=== PATIENT | female | born 1965 | race Caucasian/White ===

== ENCOUNTER 2018-02-24 18:40 | Inpatient (IN) | payer BC, OTHER ==
[~2018-02-24] VITALS: Ht 157.5 cm; Wt 53.5 kg
[2018-02-24] MEDS ORDERED: MAG HYDROX/AL HYDROX/SIMETH 30 ML LIQUID UDC PO PRN (22:00)
[2018-02-24] MEDS ORDERED: BUPRENORPHINE HCL 2 MG TAB.SUBL SL PRN (22:00)
[2018-02-24] MEDS ORDERED: ONDANSETRON 4 MG/2 ML VIAL IM PRN (22:00)
[2018-02-24] MEDS ORDERED: MAGNESIUM HYDROXIDE 30 ML LIQUID UDC PO PRN (22:00)
[2018-02-24] MEDS ORDERED: LORAZEPAM 1 MG TABLET PO PRN (22:00)
[2018-02-24] MEDS ORDERED: MIRALAX 17 GM POWD.PACK PO PRN (22:00)
[2018-02-24] MEDS ORDERED: LOPERAMIDE HCL 2 MG CAPSULE PO PRN (22:00)
[2018-02-24] MEDS ORDERED: CLONIDINE HCL 0.1 MG TABLET PO PRN (22:00)
[2018-02-24] MEDS ORDERED: diphenhydrAMINE 50 MG CAPSULE PO PRN (22:00)
[2018-02-24] MEDS ORDERED: DICYCLOMINE HCL 20 MG TABLET PO PRN (22:00)
[2018-02-24] MEDS ORDERED: ACETAMINOPHEN 325 MG TABLET PO PRN (22:00)
--- NOTE | 2018-02-24 22:45 | NUR ---
Pre-admission assessment Patient is a 53-year old, female, seen at intake, AAOx4, no SOB and with anxiety and gross tremors noted at this time. Patient also observed to have flushed skin and with sweating on the forehead. Discussed with patient admission policies of the unit. Patient is coherent and able to respond to questions appropriately. Patient reported that she is based from [place] but is originally from [place]. Pt is ambulatory with steady gait. Pt reports that she drinks Wine every other day and uses Heroin daily and if she cannot obtain Heroin, she would use Lorcet. Vital signs taken and as follows: JG=155/67, P=81, O2 sat on RA=97%, RR=20, T=98.1. Pt verbalized instructions and teachings regarding disposal of narcotic and other controlled home meds, unit protocols such as taking of vital signs Q4H and handling and disposal of contraband.
[2018-02-24] MEDS ORDERED: VALA500T PO (23:22)
[2018-02-24] MEDS ORDERED: DIPH25TA2 PO (23:22)
[2018-02-24] MEDS ORDERED: GABA300C PO (23:22)
[2018-02-24] MEDS ORDERED: QUET25TA PO (23:22)
[2018-02-24 23:30] VITALS: BP 126/68
[2018-02-24] MEDS ORDERED: LORAZEPAM 1 MG TABLET PO SCH (23:30)
--- NOTE | 2018-02-24 23:30 | NUR ---
RN note one-time Seroquel Pt verbalized that she was taking Seroquel 25 mg PO HS for sleep at home. Dr. Draper ordered one-time of Seroquel 25 mg PO.
--- NOTE | 2018-02-24 23:40 | NUR ---
Admission Note Patient is a 53-year-old, female, arrived to the floor at 2315 to be admitted for medically supervised withdrawal from Opiates (Heroin and Lorcet) and Alcohol (Wine). The patient appears mildly intoxicated and patient verbalized that she is starting to experience withdrawal symptoms, as follows: flushed skin, increasing anxiety, restless legs, tremors and sweating. Patient appears melancholic and with depressed mood. Pt is AAOx4, and verbalized "I am abusing drugs and I want to stop before I lose everything." The patient states that withdrawal symptoms include emotional volatility, depression, anxiety, restless legs, generalized pain, nausea, insomnia, flushed skin and sweating. Patient denies a history of withdrawal-induced seizures. Patient verbalized that she was a Registered Nurse working in the OR and has a fall in 2016 at working resulting to being treated with Opioids due to pain from cervical bulging disc. Patient stated that when the doctor stopped prescribing opioids, she resorted to using Heroin and Lorcet when Heroin is not available. Patient states current substance use as follows: 1. Heroin- Patient stated that she first used last year and for the past year, she has been injecting (IV) 1 gm daily. Last use was on 02/24/2018 at 1400, 1 gm IV. 2. Alcohol-Patient stated that she first had alcohol at age 14. For the past 5 years, patient verbalized drinking "2 glasses of wine", every other day. Last drink was on 02/22/2018 2100, 2 glasses of red wine. 3. Lorcet--Patient stated that she first used at age 43. For the past year, patient has been using an unspecified amount, intermittent and non-daily. Per patient, she only uses when Heroin is not available. Last use was on 02/22/2018, a total of "6 pills of 10-325 mg PO" She stated that she is seeking treatment today because "I cannot sustain this. I am almost 58 and if I don't stop, it will be the end of me." Patient verbalized: "My boyfriend and kids are concerned about my drug use and like them, I fear for my life." Her longest sobriety was 10 years, between 2001 to 2011. Patient admitted that "I have a PhD in Clinical Psychology but I'm a mess. Sometimes, I cannot even look at myself in the mirror because I hate what I see. My son has become an addict because of me. I'm scared for my other kids. I need help before it's too late." Patient also stated: ""I feel like my body is about to give up. I still have some years left in me so might as well do this now." Patient verbalized that she is interested in going to a treatment center after her stay at [facility]. Patient's main support system is her boyfriend. Vital signs are taken and as follows: BP: 126/84, HR: 82, RR: 18, SpO2: 97%, Temp: 98.2 and with no c/o pain. Pulse is palpable and regular. Respirations are even and unlabored. Lung sounds clear. Bowel sounds active x4 quadrants. Last bowel movement was in the morning of 02/10/2018. Per patient, her bowel movement is mostly every other day. Skin is intact. Pt follows a regular diet at home. NKA. Full Code. Height is 5'2", 118 lbs. She smokes approximately about a pack of cigarettes daily. Per patient, primary care physician is Dr. Alves in [place]. Pt denies having a Psychiatrist. Pt states that her medical history are as follows: Anxiety, Depression, Hepatitis C, Appendectomy (1993), Tubal Ligation (1994) and Cervical Bulging Disc resulting from a fall in 2016. Educated patient about plan of care including detox, group therapy, individual therapy, and discharge planning. Encouraged patient to be open and honest and verbalized support for patient in her recovery. Upon admission to the floor, COWS=9. Will continue to monitor.
[2018-02-24] MEDS ORDERED: QUETIAPINE FUMARATE 25 MG TABLET PO ONE (23:45)
[2018-02-25] VITALS: BP 117/71
--- NOTE | 2018-02-25 00:35 | NUR ---
RN note reassess Pt lying on bed, watching TV, AAOx4 and verbalized: "I feel sleepy now. I may knock out soon."
[2018-02-25 01:13] LABS: *URINE HCG, QUAL NEGATIVE (NEGATIVE)
[2018-02-25 02:54] LABS: *AMPHETAMINE, URINE NEGATIVE (NEGATIVE); *BARBITURATE, URINE NEGATIVE (NEGATIVE); *CANNABINOID, URINE NEGATIVE (NEGATIVE); *COCCAINE, URINE NEGATIVE (NEGATIVE); *OPIATE, URINE POSITIVE (NEGATIVE); *PHENCYCLIDINE SCREEN,URINE NEGATIVE (NEGATIVE)
[2018-02-25 04:00] VITALS: BP 114/73
--- NOTE | 2018-02-25 07:21 | NUR ---
End of Shift Patient asleep on bed but arousable, AAOx4 and getting increasingly anxious. Pt continues to have flushed skin, sweating and with tremors noted. Pt appears depressed and melancholic. Fall, universal, safety and seizure prec in place. Call light within reach. Latest COWS=8, slept for 2 hours. Endorsed to AM shift nurse for continuity of care.
--- NOTE | 2018-02-25 07:36 | NUR ---
Start of shift Patient 53 y/o female admitted for medically supervised withdrawal of Heroin, Lorcet and ETOH. Patient alert & oriented to name, place & situation. Presents with depressed mood, flat affect, and anxious. Denies c/o N/V/D. Pt on PRN Subutex. At 0400 last COWS 8. No PRN medications received during PM shift. Patient slept 2 hours. Patient remained compliant with medication regimen. Encourage pt to attend group therapy to learn/develop coping skills to prevent relapse. Pt allergic to iodine, FULL CODE. Bed in lowest/locked position, side rails up X2, call light within reach. Will continue to monitor for withdrawal symptoms.
[2018-02-25 08:02] VITALS: BP 123/81
[2018-02-25 08:07] LABS: BASOPHILS # (AUTO) 0.1 K/uL (0.0-8.0); BASOPHILS % (AUTO) 1.3 % (0.0-2.0); EOSINOPHILS # (AUTO) 0.2 K/uL (0.0-0.7); EOSINOPHILS % (AUTO) 2.9 % (0.0-7.0); HEMATOCRIT 42.6 % (31.2-41.9); HEMOGLOBIN 14.7 g/dL (10.9-14.3); LYMPHOCYTES % (AUTO) 36.4 % (20.5-51.5); MEAN CORPUSCULAR HEMOGLOBIN 32.3 uug (24.7-32.8); MEAN CORPUSCULAR HGB CONC 35 g/dL (32.3-35.6); MEAN CORPUSCULAR VOLUME 93.4 fL (75.5-95.3); MONOCYTES # (AUTO) 0.6 K/uL (2.0-10.0); MONOCYTES % (AUTO) 10.2 % (0.0-11.0); NEUTROPHILS # (AUTO) 2.7 K/uL (1.8-8.9); NEUTROPHILS % (AUTO) 49.2 % (38.5-71.5); PLATELET COUNT (AUTO) 160 K/uL (179-408); RED BLOOD CELL COUNT(AUTO) 4.56 MIL/uL (3.63-4.92); WHITE BLOOD COUNT (AUTO) 5.4 K/uL (3.8-11.8)
[2018-02-25] MEDS: IBUPROFEN 600 MG TABLET PO PRN (08:14)
[2018-02-25] MEDS: ONDANSETRON ODT 4 MG TAB.RAPDIS SL PRN (08:14)
[2018-02-25] MEDS: METHOCARBAMOL 750 MG TABLET PO PRN ×2 (08:14→21:05)
--- NOTE | 2018-02-25 08:20 | NUR ---
PRN MEDICATIONS IBUPROFEN 600 MG PO FOR NECK PAIN #7/10 ROBAXIN 750 MG PO FOR GENERALIZED BODY ACHES ATIVAN 2 MG PO FOR ANXIETY AND WITHDRAWAL SYMPTOMS ZOFRAN 4 MG SL FOR NAUSEA NO EMESIS.
--- NOTE | 2018-02-25 08:22 | NUR ---
TB TEST ADMINISTERED TO LEFT FOREARM. WILL BE READ IN 48-72 HOURS
[2018-02-25 08:24] LABS: ETHANOL < 3 MG/DL (0-0)
[2018-02-25 08:25] LABS: ALANINE AMINOTRANSFERASE 154 U/L (14-59); ALKALINE PHOSPHATASE 183 U/L (50-136); ASPARTATE AMINOTRANSFERASE 143 U/L (15-37); BILIRUBIN,TOTAL 0.4 mg/dL (0.2-1.0); CHLORIDE 102 mmol/L (98-107); CREATININE 0.7 mg/dL (0.6-1.3); GLUCOSE 92 mg/dL (74-106); MAGNESIUM 1.9 mg/dL (1.8-2.4); POTASSIUM 3.8 mmol/L (3.5-5.1); TOTAL PROTEIN, SERUM 7.6 g/dL (6.4-8.2); UREA NITROGEN, BLOOD 15 mg/dL (7-18)
[2018-02-25 08:29] LABS: CARBON DIOXIDE 28 mmol/L (21-32)
[2018-02-25] MEDS ORDERED: TUBERCULIN,PURIF.PROT.DERIV. 5 TU/0.1 ML TEST ID ONE (09:00)
--- NOTE | 2018-02-25 09:20 | NUR ---
REASSESS PRN MEDICATIONS IBUPROFEN- PT STATES NECK PAIN NOW #2-3 /10 AND SHE FEELS BETTER ROBAXIN- PT STATES BODY ACHES IMPROVED ZOFRAN- PT STATES NAUSEA GONE AND SHE WAS ABLE TO EAT BREAKFAST ATIVAN- PT REPORTS ANXIETY AND W/D SYMPTOMS IMPROVED
[2018-02-25 12:00] VITALS: BP 107/71
[2018-02-25] MEDS ORDERED: LORAZEPAM 2 MG/1 ML VIAL IM PRN (12:15)
[2018-02-25] MEDS ORDERED: GABAPENTIN 300 MG CAPSULE PO SCH (15:00)
[2018-02-25 16:00] VITALS: BP 124/78
[2018-02-25] MEDS: LORAZEPAM 1 MG TABLET PO PRN (16:08)
--- NOTE | 2018-02-25 16:09 | NUR ---
PRN ATIVAN 1 MG PO FOR CIWA 9
--- NOTE | 2018-02-25 17:00 | NUR ---
[facility] PT STATES SHE FEELS LESS ANXIOUS AND MORE RELAXED.
--- NOTE | 2018-02-25 18:37 | NUR ---
End of shift Patient 53 y/o female admitted for medically supervised withdrawal of Heroin, Lorcet and ETOH. Patient alert & oriented to name, place & situation. Presents with depressed mood, flat affect, and anxious. Denies c/o N/V/D. Pt on PRN Ativan and Subutex today, taper to start tomorrow. Last COWS 9, CIWA 6. PRN medications given, Zofran, Ativan, Robaxin, and Motrin. Patient remained compliant with medication regimen. Encourage pt to attend group therapy to learn/develop coping skills to prevent relapse. Did not attend group therapy. Pt allergic to iodine, FULL CODE. Adequate PO fluids 2047 ml, voids X 3, no BM. Fall and seizure precautions observed. Bed in lowest/locked position, side rails up X2, call light within reach. Will continue to monitor for withdrawal symptoms. Endorsed to PM shift.
[2018-02-25 20:00] VITALS: BP 140/79
--- NOTE | 2018-02-25 20:00 | NUR ---
START OF SHIFT NOTE RECEIVED REPORT FROM DAY SHIFT NURSE. PATIENT IS A 53 YEAR OLD FEMALE ADMITTED FOR ETOH/HEROIN WITHDRAWAL. PATIENT IS ON PRN SUBUTEX AND ATIVAN, TAPER WILL START TOMORROW. PATIENT WAS GIVEN PRN ATIVAN X 2, ROBAXIN AND ZOFRAN . LAST COWS 9 AND CIWA 6. RECEIVED PATIENT IN THE ROOM. PATIENT IN THE ROOM, PRESENTS WITH FLAT AFFECT, SAD, AVOIDANT EYE CONTACT, IRRITABLE, ANXIETY , SWEATING , FATIGUE AND 7/10 LOWER BACK. SAFETY MEASURES IN PLACE. CALL LIGHT IN REACH. WILL CONTINUE TO MONITOR
[2018-02-25] MEDS: GABAPENTIN 300 MG CAPSULE PO SCH (21:05)
--- NOTE | 2018-02-25 21:05 | NUR ---
PRN ROBAXIN ADMINISTRATION PATIENT C/O BACK PAIN 04/25. WILL MONITOR FOR EFFECTIVENESS
--- NOTE | 2018-02-25 22:05 | NUR ---
GIANLUCA OSEGUERA RE-ASSESSMENT PATIENT IN BED ASLEEP . RESPIRATION EVEN AND UNLABORED. NO FACIAL GRIMACING. WILL CONTINUE TO MONITOR
--- NOTE | 2018-02-26 | NUR ---
COWS AND CIWA DEFERRED PATIENT IN BED SLEEPING. RESPIRATION EVEN AND UNLABORED. VS REFUSED. WILL CONTINUE TO MONITOR
--- NOTE | 2018-02-26 04:00 | NUR ---
COWS AND CIWA DEFERRED PATIENT IN BED SLEEPING. RESPIRATION EVEN AND UNLABORED. VS REFUSED. WILL CONTINUE TO MONITOR
--- NOTE | 2018-02-26 07:07 | NUR ---
END OF SHIFT NOTE PATIENT SLEPT 10 HOURS. FLUID INTAKE 1,180 ML. VOIDED X 2. NO BM MONITORED PATIENT THROUGHOUT SHIFT. PATIENT PRESENTED WITH FLAT AFFECT, SAD, EYE AVOIDANT, IRRITABLE, ANXIETY , SWEATING , FATIGUE AND 7/10 LOWER BACK BEGINNING OF SHIFT . PRN ROBAXIN AT 2105 GIVEN. PATIENT IN THE ROOM MOST OF THE SHIFT. SAFETY MEASURES IN PLACE. CALL LIGHT IN REACH. WILL CONTINUE TO MONITOR . LAST COWS 7 AND CIWA 7.
--- NOTE | 2018-02-26 07:30 | NUR ---
Start of shift Patient 53 y/o female admitted for medically supervised withdrawal of Heroin, Lorcet and ETOH. Patient alert & oriented to name, place & situation. Presents with tremors, agitation, restlessness, depressed mood, flat affect, and anxious. Denies c/o N/V/D. Pt starts on Subutex taper today. Last COWS 7, CIWA . PRN medications given last night Robaxin. Patient remained compliant with medication regimen. Encourage pt to attend group therapy to learn/develop coping skills to prevent relapse. Pt allergic to iodine, FULL CODE. Fall and seizure precautions observed. Bed in lowest/locked position, side rails up X2, call light within reach. Will continue to monitor for withdrawal symptoms.
[2018-02-26 07:56] LABS: BASOPHILS # (AUTO) 0.1 K/uL (0.0-8.0); BASOPHILS % (AUTO) 1.3 % (0.0-2.0); EOSINOPHILS # (AUTO) 0.1 K/uL (0.0-0.7); EOSINOPHILS % (AUTO) 0.9 % (0.0-7.0); HEMATOCRIT 41.3 % (31.2-41.9); HEMOGLOBIN 14.3 g/dL (10.9-14.3); LYMPHOCYTES # (AUTO) 1.5 K/uL (20.0-40.0); LYMPHOCYTES % (AUTO) 19.9 % (20.5-51.5); MEAN CORPUSCULAR HEMOGLOBIN 32.5 uug (24.7-32.8); MEAN CORPUSCULAR HGB CONC 35 g/dL (32.3-35.6); MEAN CORPUSCULAR VOLUME 94.1 fL (75.5-95.3); MONOCYTES # (AUTO) 0.4 K/uL (2.0-10.0); MONOCYTES % (AUTO) 5.8 % (0.0-11.0); NEUTROPHILS # (AUTO) 5.4 K/uL (1.8-8.9); NEUTROPHILS % (AUTO) 72.1 % (38.5-71.5); PLATELET COUNT (AUTO) 169 K/uL (179-408); RED BLOOD CELL COUNT(AUTO) 4.39 MIL/uL (3.63-4.92); WHITE BLOOD COUNT (AUTO) 7.4 K/uL (3.8-11.8)
[2018-02-26 08:00] VITALS: BP 129/86
[2018-02-26] MEDS: FOLIC ACID 1 MG TABLET PO SCH (08:21)
[2018-02-26] MEDS: LORAZEPAM 1 MG TABLET PO PRN ×4 (08:21→20:49)
[2018-02-26] MEDS: MULTIVITAMINS,THERAPEUTIC TABLET PO SCH (08:21)
[2018-02-26] MEDS: GABAPENTIN 300 MG CAPSULE PO SCH ×2 (08:21→20:49)
[2018-02-26] MEDS: THIAMINE HCL 100 MG TABLET PO SCH (08:21)
[2018-02-26] MEDS: IBUPROFEN 600 MG TABLET PO PRN ×2 (08:21→16:12)
[2018-02-26] MEDS: METHOCARBAMOL 750 MG TABLET PO PRN ×2 (08:21→16:12)
[2018-02-26] MEDS: BUPRENORPHINE HCL 2 MG TAB.SUBL SL SCH ×3 (08:22→20:49)
--- NOTE | 2018-02-26 08:23 | NUR ---
PRN MEDICATIONS ATIVAN 1 MG PO FOR CIWA 11 AND PT C/O ANXIETY IBUPROFEN 600 MG PO FOR NECK PAIN AND HEADACHE #7/10 ROBAXIN 750 MG PO FOR BODY ACHES
[2018-02-26 08:48] LABS: BILIRUBIN,DIRECT 0.1 mg/dL (0.0-0.2); BILIRUBIN,TOTAL 0.4 mg/dL (0.2-1.0); CREATININE 0.8 mg/dL (0.6-1.3); MAGNESIUM 1.8 mg/dL (1.8-2.4); TOTAL PROTEIN, SERUM 7.3 g/dL (6.4-8.2)
--- NOTE | 2018-02-26 09:30 | NUR ---
REASSESS MEDICATIONS ATIVAN- PT REPORT ANXIETY BETTER CIWA NOW 9 IBUPROFEN- PT REPORTS NECK PAIN NOW #2/10 ROBAXIN- [place] REPORTS BODY ACHES IMPROVED
[2018-02-26 11:06] LABS: HEPATITIS B SURFACE AG Negative (Negative)
[2018-02-26 12:00] VITALS: BP 144/92
--- NOTE | 2018-02-26 12:17 | NUR ---
PRN ATIVAN 1 MG PO FOR CIWA 11, PT C/O ANXIETY, AGITATION AND OVERALL MALAISE.
--- NOTE | 2018-02-26 13:05 | NUR ---
REASSESS ATIVAN- CIWA NOW 8. PT REPORTS FEELING BETTER AND LESS ANXIOUS.
[2018-02-26] MEDS: DICYCLOMINE HCL 20 MG TABLET PO SCH ×2 (14:00→20:49)
--- NOTE | 2018-02-26 14:45 | NUR ---
Therapist prompted client to attend twice daily group counseling sessions and client agreed to do so.
[2018-02-26 16:00] VITALS: BP 149/84
[2018-02-26] MEDS: ONDANSETRON ODT 4 MG TAB.RAPDIS SL PRN (16:12)
[2018-02-26] MEDS: HYDROXYZINE PAMOATE 25 MG CAPSULE PO PRN (16:12)
--- NOTE | 2018-02-26 16:14 | NUR ---
PRN MEDICATIONS- ATIVAN 2 MG PO FOR CIWA 13 ZOFRAN 4 MG SL FOR NAUSEA NO EMESIS VISTARIL 25 MG PO FOR ANXIETY ROBAXIN 750 MG PO FOR BODYACHES IBUPROFEN 600 MG PO FOR BACK AND NECK PAIN #7/
--- NOTE | 2018-02-26 17:14 | NUR ---
REASSESS MEDICATIONS- ATIVAN- CIWA 7, PT REPORTS SHE IS FEELING BETTER ZOFRAN- PT REPORTS NAUSEA RESOLVED, NO EMESIS VISTARIL- PT REPORTS SHE FEELS LESS ANXIOUS ROBAXIN- PT REPORTS BODY ACHES ARE IMPROVED IBUPROFEN- PT REPORTS BACK AND NECK PAIN REDUCED TO #3/10
--- NOTE | 2018-02-26 18:40 | NUR ---
End of shift Patient 53 y/o female admitted for medically supervised withdrawal of Heroin, Lorcet and ETOH. Patient alert & oriented to name, place & situation. Presents with tremors, agitation, anxiety, restlessness, body aches, headache, nausea, depressed mood, and flat affect. Pt remains disheveled and poor activity tolerance. Pt started on 4 day Subutex taper today and PRN Ativan. Last COWS 14, CIWA 7. PRN medications given today were Motrin, Robaxin, Zofran, Vistaril and Ativan. Patient remained compliant with medication regimen. Encourage pt to attend group therapy to learn/develop coping skills to prevent relapse. Pt did not attend group therapy today as she was suffering from multiple detox symptoms. Adequate PO fluids 2660 ml, voids X 2, BM X 1. Pt allergic to iodine, FULL CODE. Fall and seizure precautions observed. Bed in lowest/locked position, side rails up X2, call light within reach. Will continue to monitor for withdrawal symptoms. Endorsed to PM shift.
--- NOTE | 2018-02-26 19:30 | NUR ---
START OF SHIFT Pt is a 53 y/o female admitted on 02/24/18 for ETOH and opiate withdrawal. Pt is on a 4 day Subutex taper that started today, tolerating well. Last COWS 10 and CIWA 13 and PRN Motrin x 2, Robaxin x 2, Ativan x 3, Zofran odt and Vistaril administered during day shift. Upon assessment pt presents with anxiety, restless legs, agitation, difficulty concentrating, difficulty thinking clearly, disheveled appearance, body aches, chills, flat affect, sweats, increased BP, dysphoria, anhedonia and is isolative. Medications due. Safety measures in place. Call light within reach. Will continue to monitor.
[2018-02-26 20:00] VITALS: BP 142/86
[2018-02-26] MEDS: CLONIDINE HCL 0.1 MG TABLET PO SCH (20:49)
[2018-02-26] MEDS: QUETIAPINE FUMARATE 25 MG TABLET PO PRN (20:49)
--- NOTE | 2018-02-26 20:49 | NUR ---
PRN ATIVAN 2 MG AND SEROQUEL 25 MG ADMINISTRATION CIWA 13. Pt presents with anxiety, agitation, restless legs, sweats, chills. Pt requests Seroquel for sleep. Safety measures in place. Call light within reach. Will continue to monitor.
--- NOTE | 2018-02-26 21:49 | NUR ---
PRN ATIVAN AND SEROQUEL REASSESSMENT Pt laying in bed with eyes closed, medications noted effective. Safety measures in place. Call light within reach. Will continue to monitor.
--- NOTE | 2018-02-27 | NUR ---
COWS/CIWA DEFERRED AND VITALS REFUSED Pt laying in bed with eyes closed, COWS/CIWA deferred, to be assessed when pt is awake per orders. Vitals refused. Respirations even and unlabored. Safety measures in place. Call light within reach. Will continue to monitor.
--- NOTE | 2018-02-27 07:17 | NUR ---
END OF SHIFT Pt is a 53 y/o female admitted on 02/24/18 for ETOH and opiate withdrawal. Pt is on a 4 day Subutex taper that started on 02/26/18, tolerating well. Pt presented with anxiety, restless legs, agitation, difficulty concentrating, difficulty thinking clearly, disheveled appearance, body aches, chills, flat affect, sweats, increased BP, dysphoria, anhedonia and was isolative. Scheduled medications and PRN Ativan 2 mg and Seroquel 25 mg administered, effective in S/S of withdrawal as verbalized by pt. Last COWS 10 and CIWA 13. Pt slept 9 hours. Intake 855 ml, void x 3, stool x 0. Safety measures in place. Call light within reach. Pts needs have been met. Endorsed to day shift nurse.
--- NOTE | 2018-02-27 07:47 | NUR ---
START OF SHIFT PT IS A 53 Y/O F ADMITTED ON 02/24/18 FOR MEDICALLY SUPERVISED ETOH AND OPIATE WITHDRAWAL. PT IS ON A 4 DAY SUBUTEX THAT STARTED ON 02/26/18 WITH PRN ATIVAN AND TOLERATING WELL. PT IS A/OX4, RESPIRATIONS EVEN AND UNLABORED, UPON ENTERING ROOM PT IS SITTING UP IN BED WATCHING TV. PT PRESENTS ANXIETY, AGITATION, RESTLESSNESS, DIAPHORESIS, CHILLS, HOT/COLD FLASHES, GENERALIZED BODY ACHES, DIFFICULTY CONCENTRATING, DYSPHORIA, ANHEDONIA. PT C/O NAUSEA, STOMACH CRAMPS, PT STATES FEELING OF "JUMPING OUT OF MY SKIN." ENCOURAGED PT TO ATTEND GROUPS TO PROMOTE COPING SKILLS. ENCOURAGED PT TO INCREASE FLUIDS FOR HYDRATION. EDUCATED PT ON MED REGIMEN AND TODAY'S PLAN OF CARE. SIDE RAILS UPX2, BED IS IN LOW POSITION, CALL LIGHT WITHIN REACH. SAFETY MEASURES IN PLACE. WILL MONITOR AND PROVIDE SUPPORT.
[2018-02-27 08:00] VITALS: BP 114/78
[2018-02-27] MEDS: DICYCLOMINE HCL 20 MG TABLET PO SCH ×3 (08:49→20:21)
[2018-02-27] MEDS: ONDANSETRON ODT 4 MG TAB.RAPDIS SL PRN (08:49)
--- NOTE | 2018-02-27 08:49 | NUR ---
PRN ZOFRAN 4MG SL GIVEN FOR C/O NAUSEA; PT STATES HE FEELS IF SHE WILL VOMIT. PT TOLERATED MED WELL, WILL MONITOR AND REASSESS.
[2018-02-27] MEDS: GABAPENTIN 300 MG CAPSULE PO SCH ×3 (08:50→20:21)
[2018-02-27] MEDS: THIAMINE HCL 100 MG TABLET PO SCH (08:50)
[2018-02-27] MEDS: MULTIVITAMINS,THERAPEUTIC TABLET PO SCH (08:50)
[2018-02-27] MEDS: FOLIC ACID 1 MG TABLET PO SCH (08:50)
[2018-02-27] MEDS: CLONIDINE HCL 0.1 MG TABLET PO SCH ×2 (08:50→20:22)
[2018-02-27] MEDS ORDERED: BUPRENORPHINE HCL 2 MG TAB.SUBL SL SCH (09:00)
--- NOTE | 2018-02-27 09:30 | NUR ---
REASSESSMENT PT REPORTS NAUSEA HAS CEASED. SAFETY MEASURES IN PLACE. WILL CONTINUE TO MONITOR.
[2018-02-27 12:02] VITALS: BP 105/70
[2018-02-27] MEDS: BUPRENORPHINE HCL 2 MG TAB.SUBL SL SCH ×2 (14:08→20:21)
[2018-02-27 16:00] VITALS: BP 134/85
--- NOTE | 2018-02-27 19:08 | NUR ---
START OF SHIFT NOTE: Endorsed 53 year old female continues 5 Day Subutex Taper for ETOH/ Wine, Opioid/Heroin withdrawal. Patient tolerated well. Withdrawal symptoms was closely monitored. She is alert and oriented x4, speech is clear and soft. Patient reported allergy to iodine, is on Full Code, Regular Diet, and is on Fall and Seizures Precautions. Patient denies withdrawal-induced seizures. Patient presented with anxious mood. Patient 's c/o increased anxiety, and irritability. Emotional support provided, and patient 's reassuring. The patient noted disheveled, unkempt, and uncombed. The patient was educated in safety and hygiene care. Patient was encouraged to independently perform hygiene care. Last COWS=12, CIWA=12 at 1600: During day shift patient presented with anxiety, agitation, irritability, nervousness, restlessness, nasal congestion, nausea, body aches, tremors, and fatigue. Respirations are even and unlabored. Patient denies SOB, chest pain, and cough. Abdomen is soft and non-tender. Bowel Sounds active in all four quadrants. Skin is intact, warm and dry to touch. PRN Zofran 4 mg SL PO administrated for nausea at 0816 was effective. Patient remains compliant with treatment, medications, and diet regime. All needs met. Safe and calm environment with minimized noises was provided. Safety measures in the place: Call light within reach, bed in the lowest position locked, padded rails up x2. Patient endorsed by day shift nurse.
--- NOTE | 2018-02-27 19:08 | NUR ---
END OF SHIFT LAST COWS 12 AND CIWA 12 @1600. PT HAS BEEN GIVEN ZOFRAN PRN. PT HAS BEEN ISOLATIVE IN ROOM DURING SHIFT. PT ATE 75% OF MEALS. PT HAS BEEN COMPLIANT WITH MED REGIMEN. PT STATES SHE IS MOTIVATED TO CONTINUE TREATMENT AFTER DETOX. FLUID INTAKE 1391ML, VOIDED X3, BM 0. SAFETY MEASURES IN PLACE. WILL GIVE ENDORSEMENT TO CHILD SUPPORT INVESTIGATOR.
[2018-02-27 20:00] VITALS: BP 99/68
[2018-02-27] MEDS: QUETIAPINE FUMARATE 25 MG TABLET PO PRN (20:21)
--- NOTE | 2018-02-27 20:21 | NUR ---
PRN SEROQUEL 25 MG 1 TABLET PO ADMINISTRATION Patient c/o insomnia. PRN Seroquel 25 mg PO administrated with full glass of water as ordered. All needs met. Safe and calm environment with minimized noises was provided. Safety measures on place. Call light within reach, bed in lowest position locked, padded rails up bilaterally. Will continue to monitor closely.
[2018-02-27] MEDS: BACLOFEN 10 MG TABLET PO SCH (20:22)
--- NOTE | 2018-02-27 21:21 | NUR ---
RE-ASSESSMENT Patient is sleeping. RR 17. Respirations even and unlabored. PRN Seroquel 25 mg PO administrated for insomnia at 2020 as ordered was effective. All needs met. Safety measures on place. Call light within reach, bed in lowest position locked, padded rails up bilaterally. Will continue to monitor closely.
[2018-02-28] VITALS: BP 87/50
--- NOTE | 2018-02-28 04:00 | NUR ---
VS REFUSED AND COWS/CIWA DEFERRED Patient refused to be woken up for 0400 VS. COWS/CIWA deferred d/t patient sleeping to assess while patient is awake. Safety measures on place by hospital policy: Call light within reach, bed locked in lowest position, side rails up x2. Will continue to monitor closely.
--- NOTE | 2018-02-28 06:45 | NUR ---
END OF SHIFT NOTE: Endorsed 53 year old female continues 5 Day Subutex Taper for ETOH/ Wine, Opioid/Heroin withdrawal. He is tolerated well. Withdrawal symptoms was closely monitored. Patient is alert and oriented x4, speech is clear and soft. COWS=11, CIWA=12 at 2000. Latest COWS=9, CIWA=9 at 0000. PRN Seroquel 25 mg PO administrated for insomnia at 2020 was effective. Patient remains compliant with treatment, medications, and diet regime. Encouraged to increase oral fluids intake as tolerated. Encouraged to attend groups activities. Safe and calm environment with minimized noises was provided. Patient sleep 8 hours, intake 1,355ml, voided x2. All needs met. Safety measures in the place by hospital policy: Call light within reach, bed in the lowest position and locked, padded rails up x2. Patient endorsed to day shift nurse.
--- NOTE | 2018-02-28 07:27 | NUR ---
START OF SHIFT PT IS A 53 Y/O F ADMITTED ON 02/24/18 FOR MEDICALLY SUPERVISED ETOH AND OPIATE WITHDRAWAL. PT IS ON A 4 DAY SUBUTEX THAT STARTED ON 02/26/18 WITH PRN ATIVAN AND TOLERATING WELL. PT IS A/OX4, RESPIRATIONS EVEN AND UNLABORED, PT PRESENTS ANXIETY, AGITATION, RESTLESSNESS, DIAPHORESIS, GENERALIZED BODY ACHES, DIFFICULTY CONCENTRATING, DYSPHORIA, ANHEDONIA. PT C/O NAUSEA, STOMACH CRAMPS. ENCOURAGED PT TO ATTEND GROUPS TO PROMOTE COPING SKILLS; PT VERBALIZED SHE WILL TRY. EDUCATED PT ON MED REGIMEN AND TODAY'S PLAN OF CARE. SIDE RAILS UPX2, BED IS IN LOW POSITION, CALL LIGHT WITHIN REACH. SAFETY MEASURES IN PLACE. WILL MONITOR AND PROVIDE SUPPORT. Addendum: 02/28/18 at 0729 by EDEN IBRAHIM RN IVET COWS 9 AND YARIWA 9.
[2018-02-28 08:00] VITALS: BP 117/71
[2018-02-28] MEDS: GABAPENTIN 300 MG CAPSULE PO SCH ×3 (08:32→20:51)
[2018-02-28] MEDS: BACLOFEN 10 MG TABLET PO SCH ×3 (08:32→20:51)
[2018-02-28] MEDS: MULTIVITAMINS,THERAPEUTIC TABLET PO SCH (08:32)
[2018-02-28] MEDS: FOLIC ACID 1 MG TABLET PO SCH (08:32)
[2018-02-28] MEDS: THIAMINE HCL 100 MG TABLET PO SCH (08:32)
[2018-02-28] MEDS: DICYCLOMINE HCL 20 MG TABLET PO SCH ×3 (08:32→20:51)
[2018-02-28] MEDS: BUPRENORPHINE HCL 2 MG TAB.SUBL SL SCH ×3 (08:33→20:52)
[2018-02-28] MEDS: CLONIDINE HCL 0.1 MG TABLET PO SCH ×2 (08:33→14:06)
--- NOTE | 2018-02-28 10:41 | NUR ---
PRN MIRALAX PO PRN GIVEN FOR C/O CONSTIPATION. WILL MONITOR AND REASSESS.
[2018-02-28 12:18] VITALS: BP 101/73
[2018-02-28] MEDS ORDERED: DOCU250C14 PO (12:51)
[2018-02-28] MEDS ORDERED: HYDR-3895 PO (12:51)
[2018-02-28] MEDS ORDERED: DICY20TA28 PO (12:51)
[2018-02-28] MEDS ORDERED: GABA-534 PO ×2 (12:51)
[2018-02-28] MEDS ORDERED: CLON0.1T14 PO (12:51)
[2018-02-28] MEDS ORDERED: IBUP-1955 PO (12:51)
[2018-02-28] MEDS ORDERED: METH-406 PO (12:51)
[2018-02-28] MEDS ORDERED: MIRALAX 17 GM POWD.PACK PO ONE (13:00)
--- NOTE | 2018-02-28 13:00 | NUR ---
REASSESSMENT PT REPORTED MED WAS EFFECTIVE; BM X1. WILL CONTINUE TO MONITOR.
[2018-02-28] MEDS: DOCUSATE SODIUM 250 MG CAPSULE PO SCH (13:19)
[2018-02-28] MEDS: HYDROXYZINE PAMOATE 25 MG CAPSULE PO PRN (13:25)
--- NOTE | 2018-02-28 13:25 | NUR ---
PRN VISTARIL 25 MG PO PRN GIVEN FOR C/O INCREASED ANXIETY AND INTENSE FEELINGS OF PANIC, PT CRYING UPON ARRIVAL. WILL MONITOR AND REASSESS.
--- NOTE | 2018-02-28 14:30 | NUR ---
REASSESSMENT PT IS IN ROOM WITH TV ON, LAYING IN BED WITH EYES CLOSED, APPEARS TO BE SLEEPING. WILL CONTINUE TO MONITOR.
[2018-02-28 16:00] VITALS: BP 109/67
--- NOTE | 2018-02-28 18:42 | NUR ---
START OF SHIFT NOTE: 53 year old female presented for ETOH/ Wine, Opioid/Heroin withdrawal., continues 5 Day Subutex Taper which tolerated well. Withdrawal symptoms was closely monitored. She is alert and oriented x4. She is appears sad with flat affect. Emotional support provided. The patient noted unkempt and uncombed. Patient was encouraged to independently perform hygiene care. COWS=9, CIWA=9 at 1600. VSWNL. Respirations are even and unlabored. Patient denies SOB, chest pain, and cough. Skin is intact, warm and dry to touch. PRN Miralax Po administrated for constipation at 1041, and PRN Vistaril 25 mg PO administrated for anxiety at 1325 were effective. Patient remains compliant with treatment, medications, and diet regime. All needs met. Safe and calm environment with minimized noises was provided. Safety measures in the place: Call light within reach, bed in the lowest position locked, padded rails up x2. Patient endorsed by day shift nurse.
--- NOTE | 2018-02-28 18:42 | NUR ---
END OF SHIFT LAST COWS 9 AND CIWA 9 @1600. PT HAS BEEN GIVEN ZOFRAN PRN. PT HAS BEEN ISOLATIVE IN ROOM DURING SHIFT AND HAS NOT ATTENDED GROUPS. PT ATE 75% OF MEALS. PT HAS BEEN COMPLIANT WITH MED REGIMEN. PT STATES SHE IS MOTIVATED TO CONTINUE TREATMENT AFTER DETOX. FLUID INTAKE 1875ML, VOIDED X32, BM 1. SAFETY MEASURES IN PLACE. WILL GIVE ENDORSEMENT TO CONVEYOR BELT REPAIRER.
--- NOTE | 2018-02-28 18:42 | NUR ---
START OF SHIFT NOTE: 30 year old female presented for Benzodiazepines/Xanax, Opioid/Heroin, and Methamphetamine withdrawal, continues ordered 5 day Subutex Taper which tolerated well. Patient remains compliant with treatment, medications, and diet regime. Upon endorsement patient is alert and oriented x4. She is appears worry with irritable affect and liable mood. Encouraged to express her feelings. Patient noted disheveled and unkempt. The most recent COWS=9, CIWA=9 at 1600. VSWNL. Respirations are even and unlabored. Skin is intact, warm and dry to touch. PRN Zofran SL administrated for nausea at 1041 and PRN Vistaril PO administrated for anxiety at 1325 by day shift nurse were effective. Patient remains compliant with treatment, medications, and diet regime per day shift nurse report. Encouraged to fluids intake as tolerated. Patient refused attended group activities. Safe and calm environment with minimized noises was provided. All needs met. Safety measures in place: Call light within reach, bed is locked in lowest position, padded bed rails up bilaterally. Patient endorsed by outgoing day shift nurse. Will continue to monitor closely. Addendum: 02/28/18 at 8 by GAYATHRI RANGEL RN malorie pt.
[2018-02-28 20:00] VITALS: BP 109/69
[2018-02-28] MEDS: QUETIAPINE FUMARATE 25 MG TABLET PO PRN (20:51)
--- NOTE | 2018-02-28 20:51 | NUR ---
PRN SEROQUEL 25 MG/TABLET 1 TABLET PO ADMINISTRATION Patient c/o insomnia and asked aid. PRN Seroquel 25 mg PO administrated as ordered with full glass of water. Patient tolerated well. All needs met. Safety measures in place: Call light within reach, bed is locked in lowest position, padded bed rails up bilaterally. Will continue to monitor closely.
[2018-02-28] MEDS ORDERED: CLONIDINE HCL 0.2 MG TABLET PO SCH (21:00)
--- NOTE | 2018-02-28 21:51 | NUR ---
RE-ASSESSMENT Patient is sleeping. RR 16. Respirations are even and unlabored. PRN Seroquel 25 mg PO administrated as ordered for insomnia at 2050 was effective. All needs met. Safety measures in place: Call light within reach, bed is locked in lowest position, padded bed rails up bilaterally. Will continue to monitor closely.
--- NOTE | 2018-03-01 | NUR ---
VS REFUSED, COWS/CIWA DEFERRED VS refused, COWS/CIWA deferred at 0000 due to patient sleeping; to be assessed and scored while patient is awake. Respirations are even and unlabored. RR:15. All needs met. Safety measures in place: Call light within reach, bed locked in low position, padded side rails up x2. Will continue to monitor closely.
[2018-03-01 04:00] VITALS: BP 99/59
--- NOTE | 2018-03-01 06:56 | NUR ---
END OF SHIFT NOTE: Presented patient is a 53 year old female continues 5 Day Subutex Taper for ETOH (Wine) and Opioid (Heroin )withdrawal. Withdrawal symptoms was closely monitored. Patient is alert and oriented x4. COWS=11,CIWA=10 at 1999. The most recent COWS=9,CIWA=8 at 399. PRN Seroquel 25 mg PO administrated for insomnia at 2050 was effective. Patient remains compliant with treatment, medications, and diet regime. Encouraged to increase oral fluids intake as tolerated. Encouraged to attend groups activities. Safe and calm environment with minimized noises was provided. Patient sleep 7 hours, intake 1,296ml, voided x2. All needs met. Safety measures in the place by hospital policy: Call light within reach, bed in the lowest position and locked, padded rails up x2. Patient endorsed to day shift nurse.
--- NOTE | 2018-03-01 07:05 | NUR ---
Start Of Shift Report received from warehouse shift supervisor nurse. Pt is a 53 year old female presented for ETOH/ Wine, Opioid/Heroin withdrawal. Per warehouse shift supervisor nurse pt's last CIWA was 8 and COWS was a 9.Pt continues her 5 Day Subutex taper currently on her last dose. Upon start of shift pt noted ion her room watching TV. When greeted pt stated " Im feeling a bit anxious can i have my morning medications please". Pt's room appears unorganized, pt has water bottles and candy wraps around the room. Pt appears anxious, sweaty and flushed. During assessment, pt is AOx3. Lung sounds clear bilaterally. Radial pulse is regular and non-bounding. Abdomen soft and non-tender. Pt's skin is warm and intact. pt denies any pain at the moment. Encouraged pt to drink plenty of fluids to keep hydrated and help the detox process. Pt received PRN Seroquel last night for sleep, per warehouse shift supervisor nurse medication was effective, pt slept a total of 7 hours last night. Bed in lowest position. Side rails up x2. Call light functioning and within reach. All needs attended and met. Will continue to monitor.
[2018-03-01 08:00] VITALS: BP 108/76
[2018-03-01] MEDS ORDERED: BUPRENORPHINE HCL 2 MG TAB.SUBL SL SCH (09:00)
[2018-03-01] MEDS: CLONIDINE HCL 0.1 MG TABLET PO SCH ×3 (09:00→20:46)
[2018-03-01] MEDS: DICYCLOMINE HCL 20 MG TABLET PO SCH ×3 (09:12→20:45)
[2018-03-01] MEDS: BACLOFEN 10 MG TABLET PO SCH ×3 (09:12→20:45)
[2018-03-01] MEDS: GABAPENTIN 300 MG CAPSULE PO SCH ×3 (09:12→20:45)
[2018-03-01] MEDS: THIAMINE HCL 100 MG TABLET PO SCH (09:12)
[2018-03-01] MEDS: MULTIVITAMINS,THERAPEUTIC TABLET PO SCH (09:12)
[2018-03-01] MEDS: FOLIC ACID 1 MG TABLET PO SCH (09:12)
[2018-03-01] MEDS: DOCUSATE SODIUM 250 MG CAPSULE PO SCH (09:12)
[2018-03-01 12:00] VITALS: BP 100/56
--- NOTE | 2018-03-01 12:13 | NUR ---
Client was prompted to attend twice daily group sessions and client agreed.
[2018-03-01 16:00] VITALS: BP 107/66
--- NOTE | 2018-03-01 18:59 | NUR ---
End Of Shift Report given to mini shifter nurse, plan of care reviewed, VS monitored closely q 4 hours. Withdrawal symptoms were closely monitored, medications given as scheduled. Initial COWS 10 CIWA 9. Patient encouraged adequate PO fluid intake as tolerated. Patient presented with tremors sweats, and anxiety during the day. Pt did not receive any PRN medications during the day. Last COWS 7 CIWA 7. Per patient, Subutex has been helping her with her withdrawal symptoms. Pt ate all of her meals, attended some groups and activities. Plan of care followed, MD updated on patients condition Patient encouraged to attend all group therapies/sessions to learn new coping skills to recent relapse, patient denies SI/HI. all safety measures in place, bed in lowest locked position, call light within reach. All needs met and attended.
--- NOTE | 2018-03-01 19:30 | NUR ---
START OF SHIFT Pt is a 53 y/o female admitted on 02/24/18 for ETOH and opiate withdrawal. Pt finished a 4 day Subutex taper, tolerated well and is scheduled to be d/c tomorrow. Last COWS 7 and CIWA 7 and no PRNs administered during day shift. Upon assessment pt presents with anxiety, disheveled appearance, difficulty falling asleep, restlessness, unkempt room, unwashed clothing and is isolative. Medications due. Safety measures in place. Call light within reach. Will continue to monitor.
[2018-03-01 20:00] VITALS: BP 123/71
[2018-03-01] MEDS: QUETIAPINE FUMARATE 25 MG TABLET PO PRN (20:45)
[2018-03-01] MEDS: HYDROXYZINE PAMOATE 25 MG CAPSULE PO PRN (20:45)
--- NOTE | 2018-03-01 20:45 | NUR ---
PRN SEROQUEL AND VISTARIL ADMINISTRATION Pt requests Vistaril for anxiety and Seroquel for sleep. Safety measures in place. Call light within reach. Will continue to monitor.
--- NOTE | 2018-03-01 21:45 | NUR ---
PRN SEROQUEL AND VISTARIL REASSESSMENT Pt laying in bed with eyes closed, medications noted effective. Safety measures in place. Call light within reach. Will continue to monitor.
--- NOTE | 2018-03-02 | NUR ---
COWS/CIWA DEFERRED AND VITALS REFUSED Pt is laying in bed with eyes closed, COWS/CIWA deferred, to be assessed when pt is awake per orders. Respirations even and unlabored. Safety measures in place. Call light within reach. Will continue to monitor.
--- NOTE | 2018-03-02 07:10 | NUR ---
END OF SHIFT Pt is a 53 y/o female admitted on 02/24/18 for ETOH and opiate withdrawal. Pt finished a 4 day Subutex taper, tolerated well and is scheduled to be d/c today. Pt presented with anxiety, disheveled appearance, difficulty falling asleep, restlessness, unkempt room, unwashed clothing and was isolative. Scheduled medications and PRN Seroquel and Vistaril administered, effective in S/S of withdrawal as verbalized by pt. Last COWS 2 and CIWA 5. Pt slept 8 hours. Intake 100 ml, void x 3, stool x 1. Safety measures in place. Call light within reach. Pts needs have been met. Endorsed to day shift nurse.
--- NOTE | 2018-03-02 07:16 | NUR ---
START OF SHIFT Pt is a 53 yr old female, AA&OX4. Pt was admitted on 02/24/18 for Opiate/ETOH withdrawal and has completed a 4 day Subutex taper and Ativan PRN for s/s of w/d. Received report from loading dock hand nurse. Pt received Seroquel PRN and Vistaril PRN during the night. Medication was effective. Pt slept for 8 hrs. Last COWS score was 2 and CIWA score was 5 at 2000. Pt is to be discharged today to [facility]. Pt is c/o anxiety due to discharged but is able to cope with anxiety level. Skin is intact, warm and moist to touch. Safety precautions observed. Call light is within reach. Will continue to f/u.
[2018-03-02 08:08] VITALS: BP 109/66
[2018-03-02 08:44] VITALS: BP 109/66
[2018-03-02] MEDS: GABAPENTIN 300 MG CAPSULE PO SCH (08:44)
[2018-03-02] MEDS: MULTIVITAMINS,THERAPEUTIC TABLET PO SCH (08:44)
[2018-03-02] MEDS: BACLOFEN 10 MG TABLET PO SCH (08:44)
[2018-03-02] MEDS: FOLIC ACID 1 MG TABLET PO SCH (08:44)
[2018-03-02] MEDS: DICYCLOMINE HCL 20 MG TABLET PO SCH (08:44)
[2018-03-02] MEDS: THIAMINE HCL 100 MG TABLET PO SCH (08:44)
[2018-03-02] MEDS: DOCUSATE SODIUM 250 MG CAPSULE PO SCH (08:44)
[2018-03-02] MEDS: CLONIDINE HCL 0.1 MG TABLET PO SCH (08:44)
--- NOTE | 2018-03-02 09:40 | NUR ---
DISCHARGE NOTE Pt is a 53 yr old female, AA&OX4. Pt was admitted on 02/24/18 for Opiate/ETOH withdrawal and has completed a 4 day Subutex taper and Ativan PRN for s/s of w/d. Pt has been cooperative with medication regimen and plan of care. Pt was noted with anxiety but is able to cope with anxiety level. No SI/HI. last COWS score was 3 CIWA score was 3. Pt as educated on discharged summary and prescriptions. Pr was able to verbalize understanding. Pt left the unit at 0935 in stable condition to [facility]. Pt left with all belongings, valuables and home medications.
== END 2018-03-02 09:30 | disposition other institution (70) | DRG 895 ==
LOC: SRC 21:52
PROVIDERS: ADMIT Internal Medicine; ATTEND Internal Medicine
PROC: HZ2ZZZZ Detoxification Services for Substance Abuse Treatment (ICD-10-PCS; principal; 2018-02-24)
PROC: HZ41ZZZ Group Counseling for Substance Abuse Treatment, Behavioral (ICD-10-PCS; 2018-02-26)
PROC: HZ31ZZZ Individual Counseling for Substance Abuse Treatment, Behavioral (ICD-10-PCS; 2018-02-26)
DX: F11.23 Opioid dependence with withdrawal (principal); D69.6 Thrombocytopenia, unspecified; I15.9 Secondary hypertension, unspecified; E87.1 Hypo-osmolality and hyponatremia; A60.00 Herpesviral infection of urogenital system, unspecified; B19.20 Unspecified viral hepatitis C without hepatic coma; F10.20 Alcohol dependence, uncomplicated; Y90.0 Blood alcohol level of less than 20 mg/100 ml; F41.9 Anxiety disorder, unspecified; F17.210 Nicotine dependence, cigarettes, uncomplicated; E86.0 Dehydration; Z81.1 Family history of alcohol abuse and dependence; Z91.041 Radiographic dye allergy status; Z80.9 Family history of malignant neoplasm, unspecified; F32.9 Major depressive disorder, single episode, unspecified; Z82.49 Family history of ischemic heart disease and other diseases of the circulatory system; G89.29 Other chronic pain; M50.10 Cervical disc disorder with radiculopathy, unspecified cervical region
CPT/HCPCS: 36415; 70030-TC; 80307; 80361; 82746; 83735; 84703; 85025; 85610; 86580; 86592; 86705; 86803; 87340; 87806; A4663; G0480; Q0162